=== PATIENT | female | born 1945 | race Caucasian/White ===

== ENCOUNTER 2018-06-05 13:25 | Emergency (ER) | payer MEDICARE, OTHER ==
--- OUTSIDE RECORDS SUMMARY | 2018-06-05 14:02 | XMS REPORT | Continuity of Care Document ---
Author Author [facility] Organization [facility] Address Unknown Phone Unavailable Allergies There is no data. Medications There is no data. Problems There is no data. Procedures There is no data. Results There is no data. Encounters ACCT No. Visit Date/Time Discharge Status Pt. Type Provider Facility Loc./Unit Complaint [id number] 06/05/2018 13:25:00 06/05/2018 13:49:00 DIS Emergency ANNABELLA CASTANEDA, NANCY Newby [facility] ER EAR PAIN;TROUBLE HEARING [id number] 04/19/2013 11:17:00 04/19/2013 23:59:59 CLS Outpatient
== END 2018-06-05 13:49 | disposition left against medical advice (07) ==
LOC: EDUNIT# 13:25 → ER 13:25
DX: H92.09 Otalgia, unspecified ear (principal); R06.00 Dyspnea, unspecified

== ENCOUNTER → 2018-11-12 | Outpatient (CLI) | payer MEDICARE ==
--- NOTE | 2018-11-12 13:43 | Diagnostic Imaging Report ---
INDICATION: Slipped off step 2 days ago, pain.. TECHNIQUE: 3 views left ribs, 10:02 AM. CORRELATION STUDY: None FINDINGS: There appears to be a minimally displaced anterior left seventh rib fracture deformity. The remaining ribs otherwise are generally intact. Minimal atelectasis in the left lung base. No significant pneumothorax or effusion. IMPRESSION: 1. Suggestion of minimally displaced anterolateral left seventh rib fracture. Minimal left basilar atelectasis. Dictated by: Dictated on workstation # [id number]
== END ==
LOC: RAD 09:51
PROVIDERS: ATTEND Family Medicine
DX: R07.81 Pleurodynia (principal); J98.11 Atelectasis; W01.0XXA Fall on same level from slipping, tripping and stumbling without subsequent striking against object, initial encounter
CPT/HCPCS: 71100

== ENCOUNTER 2019-12-20 12:58 | Emergency (ER) | payer MEDICARE ==
[~2019-12-20] VITALS: Ht 162.5 cm; Wt 90.0 kg
--- OUTSIDE RECORDS SUMMARY | 2019-12-20 13:03 | XMS REPORT | Continuity of Care Document ---
Author Organization Unknown Address Unknown Phone Unavailable Allergies There is no data. Medications There is no data. Problems Date Dx Coded Attending Type Code Diagnosis Diagnosed By 06/05/2018 ANNABELLA CASTANEDA, NANCY Newby Ot H92.09 OTALGIA, UNSPECIFIED EAR 06/05/2018 ANNABELLA CASTANEDA, NANCY Newby Ot R06.00 DYSPNEA, UNSPECIFIED 06/09/2018 ANNABELLA CASTANEDA, NANCY Newby Ot H92.09 OTALGIA, UNSPECIFIED EAR 06/09/2018 ANNABELLA CASTANEDA, NANCY Newby Ot R06.00 DYSPNEA, UNSPECIFIED 11/28/2018 FARRAH CHAWLA DO Ot J98.11 ATELECTASIS 11/28/2018 [facility] FARRAH GARCÍA Ot R07.81 PLEURODYNIA 11/28/2018 [facility] FARRAH GARCÍA Ot W01.0XXA FALL SAME LEV FROM SLIP/TRIP W/O STRIKE Procedures There is no data. Results There is no data. Encounters ACCT No. Visit Date/Time Discharge Status Pt. Type Provider Facility Loc./Unit Complaint [id number] 11/12/2018 09:51:00 019 23:59:59 [facility] Outpatient FARRAH CHAWLA DO [facility] RAD FALL AND HURT L EFT RIBS [id number] 06/05/2018 13:25:00 018 13:49:00 DIS Emergency ANNABELLA CASTANEDA, NANCY [facility] ER EAR PAIN;TROUBL E HEARING [id number] 04/19/2013 11:17:00 013 23:59:59 [facility] Outpatient
--- NOTE | 2019-12-20 13:12 | ED Lower Extremity ---
General Stated Complaint: R ANKLE PAIN Source: patient Exam Limitations: no limitations History of Present Illness Date Seen by Provider: Dec 20, 2019 Time Seen by Provider: 13:09 Initial Comments To ER with right lateral ankle pain after her dog ran between her legs causing her to E for the right ankle. She's been unable to bear weight on it since the event. Onset: just prior to arrival Severity: moderate Pain/Injury Location: right ankle Method of Injury: fell Modifying Factors: Worse With Movement Allergies and Home Medications Allergies Coded Allergies: codeine (Verified Allergy, Unknown, Rash, 12/20/19) Patient Home Medication List Home Medication List Reviewed: Yes Review of Systems Constitutional: see HPI EENTM: see HPI Respiratory: no symptoms reported Cardiovascular: no symptoms reported Genitourinary: no symptoms reported Musculoskeletal: see HPI Skin: no symptoms reported Psychiatric/Neurological: No Symptoms Reported Physical Exam Vital Signs Vital Signs - First Documented 12/20/19 13:12 Temp 37.3 Pulse 60 Resp 16 B/P (MAP) 138/65 (89) Pulse Ox 96 O2 Delivery Room Air Capillary Refill : Height, Weight, BMI Height: '" Weight: lbs. oz. kg; BMI Method: General Appearance: WD/WN, no apparent distress HEENT: PERRL/EOMI, normal ENT inspection Respiratory: no respiratory distress, no accessory muscle use Hips: bilateral hip non-tender, bilateral hip normal inspection, bilateral hip normal range of motion Legs: bilateral leg non-tender, bilateral leg normal inspection, bilateral leg normal range of motion Knees: bilateral knee non-tender, bilateral knee normal inspection, bilateral knee normal range of motion Ankles: right ankle limited range of motion, right ankle pain, right ankle swelling, right ankle other (strong dorsalis pedis pulse) Feet: bilateral foot non-tender, bilateral foot normal inspection, bilateral foot normal range of motion Neurologic/Psychiatric: alert, normal mood/affect, oriented x 3 Skin: normal color, warm/dry Progress/Results/Core Measures Results/Orders My Orders Orders - SUMEET DUNN APRN Ankle, Right, 3 Views (12/20/19 13:05) Vital Signs/I&O 12/20/19 13:12 Temp 37.3 Pulse 60 Resp 16 B/P (MAP) 138/65 (89) Pulse Ox 96 O2 Delivery Room Air Departure Communication (Admissions) given walking boot Impression Primary Impression: Right fibular fracture Qualified Codes: S82.831A - Other fracture of upper and lower end of right fibula, initial encounter for closed fracture Disposition: 01 HOME, SELF-CARE Condition: Stable Departure-Patient Inst. Decision time for Depature: 13:24 Referrals: FARRAH CHAWLA DO (PCP/Family) Primary Care Physician Patient Instructions: Fibula Fracture (DC) Add. Discharge Instructions: 1. Return to ER for any concerns 2. Follow-up with orthopedics in a few weeks. List of local orthopedic surgeons has been provided for you but you can see whoever you would light. Wear the shoe when you are up walking around for the next 4 weeks or until otherwise directed by orthopedics.. Pain medication as directed. SUMEET DUNN APRN Dec 20, 2019 13:11
--- NOTE | 2019-12-20 13:23 | Diagnostic Imaging Report ---
EXAM: ANKLE, RIGHT, 3 VIEWS INDICATION: Right ankle pain and trauma. COMPARISON: None. FINDINGS: Mildly displaced oblique fracture of the distal right fibular metaphysis at the level of the tibial plafond. No other fracture. Soft tissue shadows are unremarkable. Plantar calcaneal heel spur. IMPRESSION: Mildly displaced fracture of the right fibular metaphysis at the level of the tibial plafond. Dictated by: Dictated on workstation # [id number]
[2019-12-20] MEDS ORDERED: HYDR-4226 PO (13:31)
[2019-12-20 13:39] VITALS: BP 138/65
== END 2019-12-20 13:39 | disposition home or self-care (01) ==
LOC: EDUNIT# 12:58 → ER 13:00
DX: S82.831A Other fracture of upper and lower end of right fibula, initial encounter for closed fracture (principal); Z88.5 Allergy status to narcotic agent; W01.0XXA Fall on same level from slipping, tripping and stumbling without subsequent striking against object, initial encounter
CPT/HCPCS: 73610

== ENCOUNTER → 2020-02-12 | Outpatient (CLI) | payer MEDICARE ==
[~2020-02-12] MED LIST: HYDR-4226 PO
--- NOTE | 2020-02-12 11:01 | Diagnostic Imaging Report ---
CLINICAL HISTORY: Pain in the right ankle. Prior fracture of the distal right fibula. COMPARISON: 12/20/2019. TECHNIQUE: 3 views of the right ankle. FINDINGS: Redemonstration of the fracture involving the distal right fibula. There has been interval increase in callus formation with decreased conspicuity of the fracture line. No new fractures are seen in the right ankle. The alignment of the ankle mortise is normal. No abnormal widening of the medial or lateral clear spaces is seen. The tibial plafond and talar dome are intact. The surrounding soft tissues are unremarkable. IMPRESSION: 1. Expected interval healing of the fracture involving the distal right fibula. No evidence of instability or new fracture in the right ankle. Dictated by: Dictated on workstation # [id number]
== END ==
LOC: ORTHO 10:02
PROVIDERS: ATTEND Orthopaedic Surgery
DX: S82.64XD Nondisplaced fracture of lateral malleolus of right fibula, subsequent encounter for closed fracture with routine healing (principal)
CPT/HCPCS: 73610

== ENCOUNTER → 2020-03-04 | Outpatient (CLI) | payer MEDICARE ==
--- NOTE | 2020-03-04 12:18 | Diagnostic Imaging Report ---
Right ankle. INDICATION: Follow-up fracture. 3 views were obtained. FINDINGS: As noted on the prior exam of 02/13/2020, there is a healing oblique essentially nondisplaced fracture of the distal fibula. The main fracture fragments are stable in alignment when compared to the prior exam. There is little if any new healing callus formation present. The overall appearance of the right ankle is otherwise stable. There is no acute bony abnormality noted. The soft tissues are unremarkable. IMPRESSION: 1. There is a healing essentially nondisplaced fracture of the distal fibula. There is no acute abnormality identified. 2. A follow-up exam should be considered if clinically indicated. Dictated by: Dictated on workstation # [id number]
== END ==
LOC: ORTHO 10:22
PROVIDERS: ATTEND Orthopaedic Surgery
DX: S82.64XD Nondisplaced fracture of lateral malleolus of right fibula, subsequent encounter for closed fracture with routine healing (principal)
CPT/HCPCS: 73610